=== PATIENT | male | born 1990 | race Caucasian/White ===

== ENCOUNTER 2023-04-08 11:55 | Emergency (ER) | payer OTHER ==
[~2023-04-08] VITALS: Ht 172.7 cm; Wt 77.1 kg
[2023-04-08] MEDS ORDERED: CEPHALEXIN500 M1 PO (14:21)
[2023-04-08] MEDS ORDERED: PERMETHRIN60 GM TOP (14:21)
[2023-04-08 14:35] VITALS: BP 173/147
== END 2023-04-08 14:39 | disposition home or self-care (01) ==
LOC: ED 11:55
DX: L01.00 Impetigo, unspecified (principal); F22 Delusional disorders
CPT/HCPCS: 99282

== ENCOUNTER 2023-10-21 16:53 | Emergency (ER) | payer BC, OTHER ==
[~2023-10-21] VITALS: Ht 172.7 cm; Wt 99.4 kg
[~2023-10-21 16:53] MED LIST: CEPHALEXIN500 M1 PO; PERMETHRIN60 GM TOP
[2023-10-21] MEDS ORDERED: ALBUTEROL SULFATE 0.5% 2.5 MG/0.5 ML VIAL INH ONE (17:15)
[2023-10-21] MEDS ORDERED: predniSONE 20 MG TAB PO ONE (17:15)
[2023-10-21] MEDS ORDERED: ALBUTEROL/IPRATROPIUM 3 ML NEB INH ONE (17:15)
[2023-10-21] MEDS ORDERED: IPRATROPIUM BROMIDE 2.5 ML VIAL ONE (17:33)
[2023-10-21] MEDS ORDERED: IPRATROPIUM BROMIDE 2.5 ML VIAL INH ONE (17:45)
[2023-10-21 19:08] VITALS: BP 155/109
--- NOTE | 2023-10-23 07:39 | EKG ---
[facility] [address] [facility] [place], [place] [address] Signed Normal sinus rhythm Nonspecific T wave abnormality Abnormal ECG No previous ECGs available Confirmed by NUPUR GARCIA MD ([id number]) on 10/23/2023 7:39:03 AM Electronically Signed By: NUPUR GARCIA 10/23/23 0739 PATIENT NAME: MARIA EUGENIA OLIVO Electrocardiogram DATE OF : 88 PHYSICIAN: NUPUR GARCIA REPORT #: [id number] REPORT IS CONFIDENTIAL AND NOT TO BE RELEASED WITHOUT AUTHORIZATION
== END 2023-10-21 19:05 | disposition home or self-care (01) ==
LOC: ED 16:53
DX: J45.901 Unspecified asthma with (acute) exacerbation (principal); I10 Essential (primary) hypertension
CPT/HCPCS: 93005; 93010; 94645; 99284-25; J7512

== ENCOUNTER 2024-07-14 12:13 | Emergency (ER) | payer BC, OTHER ==
[~2024-07-14] VITALS: Ht 172.7 cm; Wt 98.4 kg
[2024-07-14 13:27] LABS: BASOPHILS 0.6 % (0-2); EOSINOPHILS 0.7 % (0-6); HEMATOCRIT 42.3 % (35.0-50.0); HEMOGLOBIN 14.7 g/dL (12.0-18.0); LYMPHOCYTES 17.2 % (24-44); MCH 30.9 (27-36); MCHC 34.8 g/dl (30-36); MCV 88.9 fl (81-99); MONOCYTES 5.6 % (0-12); NEUTROPHILS 75.9 % (39-80); PLATELET COUNT 395 K/uL (140-440); RBC 4.76 M/ul (4.3-5.7); RDW 13.3 (10.5-15.0)
[2024-07-14 13:36] LABS: BUN/CREATININE RATIO 16.39 (6.0-28.6); CALCIUM 9.1 mg/dL (8.5-10.1); CREATININE, SERUM 0.61 mg/dL (0.70-1.30)
[2024-07-14] MEDS ORDERED: COZAAR50 MG PO (14:34)
[2024-07-14 14:50] VITALS: BP 149/115
--- NOTE | 2024-07-16 19:40 | EKG ---
[facility] [address] [place] [address] Signed Normal sinus rhythm with sinus arrhythmia Normal ECG When compared with ECG of 21-OCT-2023 16:55, Vent. rate has decreased BY 33 BPM Nonspecific T wave abnormality, improved in Inferior leads Confirmed by Mikaela Cummings MD ([id number]) on 07/16/2024 7:40:02 PM Electronically Signed By: MIKAELA CUMMINGS MD 07/16/241939 PATIENT NAME: MARIA EUGENIA OLIVO Electrocardiogram DATE OF : 88 PHYSICIAN: MIKAELA CUMMINGS MD REPORT #: [id number] REPORT IS CONFIDENTIAL AND NOT TO BE RELEASED WITHOUT AUTHORIZATION
== END 2024-07-14 14:48 | disposition home or self-care (01) ==
LOC: ED 12:13
PROVIDERS: Emergency Medicine
DX: I10 Essential (primary) hypertension (principal)
CPT/HCPCS: 36415; 80048; 85025; 93005; 93010; 99283